=== PATIENT | female | born 1960 | race Caucasian/White ===

== ENCOUNTER 2016-12-09 01:49 | Observation (INO) | payer MEDICAID ==
[~2016-12-09] VITALS: Ht 149.9 cm; Wt 68.9 kg
[~2016-12-09 01:49] MED LIST: ALBU8.5H8 INH; AMOX1TAB64 PO; BACL-19 PO; CARV6.252 PO; CIPR500T87 PO; CLON-364 PO; CLON0.1T12 PO; FAMO-79 PO; GABA300C10 PO; LISI-170 PO; LISI40TA PO; METR500T PO; NICO-486 TD; OXYC5CAP2 PO; PRED10TA PO; PROM118S4 PO; TIOT4MIS5 INH; ZINC30OI TP; ZINC56.7 TP
[2016-12-09] MEDS ORDERED: CLONAZEPAM (02:05)
[2016-12-09] MEDS ORDERED: TRAMADOL (02:05)
[2016-12-09 02:23] LABS: HEMATOCRIT 46.5 % (34.6-47.8); HEMOGLOBIN 15.9 g/dL (11.7-16.4); WHITE BLOOD COUNT 9.1 x10^3/uL (3.4-10)
[2016-12-09] MEDS ORDERED: SODIUM CHLORIDE FLUSH 10ML SYR IVF ONE (02:30)
[2016-12-09] MEDS: SODIUM CHLORIDE 0.9% 1,000ML IVBOLUS ONE ×2 (02:30→04:01)
[2016-12-09] MEDS ORDERED: ONDANSETRON ODT 4 MG PO PRN (02:30)
[2016-12-09 02:35] LABS: ASPARTATE AMINO TRANSFERASE 21 U/L (15-37); BLOOD UREA NITROGEN 8 mg/dL (7-18)
[2016-12-09 02:53] LABS: DAU SCREEN DISCLAIMER
[2016-12-09 02:58] LABS: ACETAMINOPHEN < 2 mcg/mL (10-30)
[2016-12-09] MEDS ORDERED: SODIUM CHLORIDE 0.9% 1,000ML IVBOLUS ONE (04:30)
[2016-12-09 04:50] VITALS: BP 117/75
[2016-12-09] MEDS ORDERED: CARVEDILOL 6.25 MG TABLET PO SCH (06:00)
[2016-12-09 06:39] VITALS: BP 99/63
[2016-12-09] MEDS ORDERED: LISINOPRIL 20 MG TABLET PO SCH (09:00)
[2016-12-09 09:21] VITALS: BP 134/84
[2016-12-09] MEDS: MULTIVITAMIN 1 TABLET PO SCH (10:30)
[2016-12-09] MEDS: THIAMINE 100MG TABLET PO SCH (10:30)
[2016-12-09] MEDS: FOLIC ACID 1 MG TABLET PO SCH (10:30)
[2016-12-09 12:40] VITALS: BP 100/68
[2016-12-09] MEDS: CARVEDILOL 6.25 MG TABLET PO SCH (17:55)
[2016-12-09 19:20] VITALS: BP 111/74
[2016-12-09] MEDS: LISINOPRIL 20 MG TABLET PO SCH (20:57)
[2016-12-09] MEDS: FAMOTIDINE 20 MG TABLET PO SCH (20:57)
[2016-12-09] MEDS ORDERED: ALBUTEROL SULFATE 2.5 MG/3 ML ONE (21:46)
[2016-12-09] MEDS: GUAIFENESIN 100 MG/5 ML, 10ML UDC PO PRN (22:14)
[2016-12-10] VITALS (7 sets, daily range): BP systolic 110–166; BP diastolic 70–100
[2016-12-10] MEDS: ALBUTEROL SULFATE 2.5 MG/3 ML NPPB PRN ×2 (05:40→16:33)
[2016-12-10] MEDS: MORPHINE SULFATE 4 MG/ML, 1ML IVPush PRN ×2 (05:44→17:36)
[2016-12-10 05:49] LABS: HEMATOCRIT 39.4 % (34.6-47.8); HEMOGLOBIN 13.4 g/dL (11.7-16.4); WHITE BLOOD COUNT 8.4 x10^3/uL (3.4-10)
[2016-12-10] MEDS: CARVEDILOL 6.25 MG TABLET PO SCH ×2 (05:56→17:58)
[2016-12-10] MEDS: GUAIFENESIN 100 MG/5 ML, 10ML UDC PO PRN ×2 (05:56→15:43)
[2016-12-10 06:12] LABS: BLOOD UREA NITROGEN 16 mg/dL (7-18)
[2016-12-10 06:41] LABS: IS PT STATUS REG ER OR PRE ER? NO
[2016-12-10] MEDS: MULTIVITAMIN 1 TABLET PO SCH (09:22)
[2016-12-10] MEDS: FOLIC ACID 1 MG TABLET PO SCH (09:22)
[2016-12-10] MEDS: THIAMINE 100MG TABLET PO SCH (09:22)
[2016-12-10] MEDS: LISINOPRIL 20 MG TABLET PO SCH ×2 (09:22→21:40)
[2016-12-10] MEDS: ALBUTEROL SULFATE 2.5 MG/3 ML NPPB SCH (18:50)
[2016-12-10] MEDS: FAMOTIDINE 20 MG TABLET PO SCH (21:39)
[2016-12-11] VITALS (7 sets, daily range): BP systolic 111–207; BP diastolic 76–101
[2016-12-11] MEDS: ALBUTEROL SULFATE 2.5 MG/3 ML NPPB SCH ×3 (02:40→10:45)
[2016-12-11] MEDS: CARVEDILOL 6.25 MG TABLET PO SCH ×2 (05:50→17:21)
[2016-12-11] MEDS: GUAIFENESIN 100 MG/5 ML, 10ML UDC PO PRN (05:56)
[2016-12-11 06:10] LABS: IS PT STATUS REG ER OR PRE ER? NO
[2016-12-11] MEDS: MORPHINE SULFATE 4 MG/ML, 1ML IVPush PRN ×2 (06:10→10:34)
[2016-12-11] MEDS: FOLIC ACID 1 MG TABLET PO SCH (08:43)
[2016-12-11] MEDS: MULTIVITAMIN 1 TABLET PO SCH (08:43)
[2016-12-11] MEDS: THIAMINE 100MG TABLET PO SCH (08:43)
[2016-12-11] MEDS: LISINOPRIL 20 MG TABLET PO SCH ×2 (08:43→21:10)
[2016-12-11] MEDS: OXYcodone/APAP 5/325MG TABLET PO PRN (17:21)
[2016-12-11] MEDS: FAMOTIDINE 20 MG TABLET PO SCH (21:10)
[2016-12-12] MEDS: OXYcodone/APAP 5/325MG TABLET PO PRN (02:04)
[2016-12-12 05:54] LABS: IS PT STATUS REG ER OR PRE ER? NO
[2016-12-12 06:13] VITALS: BP 126/74
[2016-12-12] MEDS: CARVEDILOL 6.25 MG TABLET PO SCH ×2 (06:14→17:34)
[2016-12-12] MEDS ORDERED: KETOROLAC 30 MG/1 ML IM SCH (07:30)
[2016-12-12 07:50] VITALS: BP 205/155
[2016-12-12] MEDS: KETOROLAC 30 MG/1 ML IM PRN ×2 (08:33→19:17)
[2016-12-12] MEDS: FOLIC ACID 1 MG TABLET PO SCH (08:33)
[2016-12-12] MEDS: MULTIVITAMIN 1 TABLET PO SCH (08:33)
[2016-12-12] MEDS: THIAMINE 100MG TABLET PO SCH (08:33)
[2016-12-12] MEDS: LISINOPRIL 20 MG TABLET PO SCH ×2 (08:33→20:05)
[2016-12-12] MEDS: LORazepam 1MG TABLET PO PRN ×2 (11:54→19:21)
[2016-12-12 19:30] VITALS: BP 138/87
[2016-12-12] MEDS: FAMOTIDINE 20 MG TABLET PO SCH (20:05)
[2016-12-13 06:00] VITALS: BP_SYST 182; BP_SYST 202; BP_DIAS 104; BP_DIAS 120
[2016-12-13] MEDS: CARVEDILOL 6.25 MG TABLET PO SCH ×2 (06:04→17:57)
[2016-12-13] MEDS: KETOROLAC 30 MG/1 ML IM PRN ×3 (06:05→20:45)
[2016-12-13 06:15] VITALS: BP_SYST 172; BP_SYST 188; BP_DIAS 107; BP_DIAS 113
[2016-12-13] MEDS: LISINOPRIL 20 MG TABLET PO SCH ×2 (06:49→20:16)
[2016-12-13 07:28] VITALS: BP 189/100
[2016-12-13] MEDS: MULTIVITAMIN 1 TABLET PO SCH (09:17)
[2016-12-13] MEDS: THIAMINE 100MG TABLET PO SCH (09:17)
[2016-12-13] MEDS: FOLIC ACID 1 MG TABLET PO SCH (09:17)
[2016-12-13] MEDS: LORazepam 1MG TABLET PO PRN ×4 (09:17→20:15)
[2016-12-13 19:31] VITALS: BP 167/102
[2016-12-13] MEDS: FAMOTIDINE 20 MG TABLET PO SCH (20:16)
== END 2016-12-14 00:21 ==
LOC: ED 02:31 → EDIP 02:35 → INTOOBSV 02:35 → 4EST 04:41 → 3E 12-11 17:35
PROVIDERS: ADMIT Internal Medicine; ATTEND Internal Medicine
DX: T40.4X2A Poisoning by other synthetic narcotics, intentional self-harm, initial encounter (principal); T42.4X2A Poisoning by benzodiazepines, intentional self-harm, initial encounter; J44.9 Chronic obstructive pulmonary disease, unspecified; I10 Essential (primary) hypertension; F17.200 Nicotine dependence, unspecified, uncomplicated; F10.10 Alcohol abuse, uncomplicated; F12.90 Cannabis use, unspecified, uncomplicated; F32.9 Major depressive disorder, single episode, unspecified; Z83.3 Family history of diabetes mellitus; Z91.5 Personal history of self-harm; Y92.89 Other specified places as the place of occurrence of the external cause
CPT/HCPCS: 36415; 80048; 80053; 80307; 80329; 84484; 85025; 93005; 94640; 96372; 96374; 96376; 99285; G0378; J1885; J7030; J7613; G0479; G0480

== ENCOUNTER 2018-01-27 21:49 | Emergency (ER) | payer MEDICAID ==
[~2018-01-27] VITALS: Ht 149.9 cm; Wt 71.1 kg
[~2018-01-27 21:49] MED LIST changes: +BUDE10.2 INH; -CLON-364 PO; +CLON0.5T11 PO; +CLONAZEPAM; +CODE118S4 PO; -PROM118S4 PO; +SERT100T PO; +TRAMADOL
[2018-01-27 21:52] VITALS: BP 145/74
== END 2018-01-27 23:07 | disposition home or self-care (01) ==
LOC: ED 22:21
DX: S93.402A Sprain of unspecified ligament of left ankle, initial encounter (principal); J44.9 Chronic obstructive pulmonary disease, unspecified; I10 Essential (primary) hypertension; Z90.710 Acquired absence of both cervix and uterus; F32.9 Major depressive disorder, single episode, unspecified; X50.1XXA Overexertion from prolonged static or awkward postures, initial encounter; Y93.89 Activity, other specified; Y99.8 Other external cause status; Y92.410 Unspecified street and highway as the place of occurrence of the external cause
CPT/HCPCS: 99283

== ENCOUNTER 2018-02-06 12:52 | Inpatient (IN) | payer MEDICAID ==
[~2018-02-06] VITALS: Ht 149.9 cm; Wt 69.3 kg
[2018-02-06] MEDS ORDERED: ONDANSETRON 2MG/ML, 2ML ONE (14:25)
[2018-02-06] MEDS ORDERED: HYDROmorphone 2 MG/ML, 1ML ONE (14:25)
[2018-02-06] MEDS ORDERED: ONDANSETRON 2MG/ML, 2ML IVPush ONE (14:30)
[2018-02-06] MEDS ORDERED: SODIUM CHLORIDE FLUSH 10ML SYR IVF ONE (14:30)
[2018-02-06] MEDS: HYDROmorphone 2 MG/ML, 1ML IVPush PRN ×2 (14:31→16:38)
[2018-02-06 14:51] LABS: BASOPHILS # (AUTO) 0.01 x10^3/uL (0-0.1); BASOPHILS % (AUTO) 0 % (0-1); EOSINOPHILS # (AUTO) 0.12 x10^3/uL (0-0.4); EOSINOPHILS % (AUTO) 2 % (1-7); LYMPHOCYTES # (AUTO) 0.82 x10^3/uL (1-3.4); LYMPHOCYTES % (AUTO) 14 % (22-44); MD NO; MEAN CORPUSCULAR HEMOGLOBIN 31.8 pg (27.0-34.8); MEAN CORPUSCULAR HGB CONC 34.5 g/dL (32.4-35.8); MEAN CORPUSCULAR VOLUME 92.1 fL (80-100); MEAN PLATELET VOLUME 8.4 fL (7.4-10.4); MONOCYTES # (AUTO) 0.66 x10^3/uL (0.2-0.8); MONOCYTES % (AUTO) 12 % (2-9); NEUTROPHILS % (AUTO) 72 % (42-75); PLATELET COUNT 244 x10^3/uL (130-400); RED BLOOD COUNT 5.02 x10^6/uL (3.82-5.3); RED CELL DISTRIBUTION WIDTH 13.7 % (9.6-15.2)
[2018-02-06 14:55] LABS: MICROSCOPIC AUTO
[2018-02-06 14:57] LABS: CULTURE INDICATED? NO
[2018-02-06 14:58] LABS: RAPID INFLUENZA A Negative (Negative); RAPID INFLUENZA B Negative (Negative)
[2018-02-06 14:58] LABS: ALANINE AMINOTRANSFERASE 21 U/L (12-78); ANION GAP 9 mmol/L (5-15); CALCIUM 9.1 mg/dL (8.5-10.1); CHLORIDE 105 mmol/L (98-107); CREATININE 0.72 mg/dL (0.55-1.02)
[2018-02-06 15:00] LABS: ALKALINE PHOSPHATASE 75 U/L (45-117); BILIRUBIN,TOTAL 0.3 mg/dL (0.2-1.0); TOTAL PROTEIN 7.7 g/dL (6.4-8.2)
[2018-02-06] MEDS ORDERED: PROMETHAZINE/COD. 10MG/6.25MG/5 ML ORAL SOL PO ONE (15:30)
[2018-02-06] MEDS ORDERED: OMNIPAQUE 350 MG/ML, 100ML BOTTLE ONE (16:20)
[2018-02-06] MEDS ORDERED: ALBUTEROL SULFATE 2.5 MG/3 ML ONE (17:09)
[2018-02-06] MEDS: ALBUTEROL SULFATE 2.5 MG/3 ML NPPB SCH ×2 (17:14→21:00)
[2018-02-06] MEDS ORDERED: LISI-170 PO (17:24)
[2018-02-06] MEDS ORDERED: trazodone PO (17:24)
[2018-02-06] MEDS ORDERED: mobic PO (17:24)
[2018-02-06] MEDS ORDERED: CEFTRIAXONE 1,000 MG in SODIUM CHLORIDE 0.9% 50 ML IVPB SCH (18:00)
[2018-02-06] MEDS ORDERED: KETOROLAC 30 MG/1 ML IM PRN (18:00)
[2018-02-06] MEDS ORDERED: GUAIFENESIN/DM 200-20MG, 10ML UDC PO PRN (18:00)
[2018-02-06] MEDS ORDERED: ENOXAPARIN 40 MG/0.4 ML SQ SCH (18:00)
[2018-02-06] MEDS ORDERED: NICOTINE 21 MG/24 HR PATCH.TD24 TD ONE (18:00)
[2018-02-06] MEDS ORDERED: ACETAMINOPHEN 650 MG SUPP PR PRN (18:00)
[2018-02-06] MEDS ORDERED: ACETAMINOPHEN 325 MG TABLET PO PRN (18:00)
[2018-02-06] MEDS ORDERED: ONDANSETRON 2MG/ML, 2ML IVPush PRN (18:00)
[2018-02-06] MEDS ORDERED: GABA100C PO (18:11)
[2018-02-06] MEDS ORDERED: ALBUTEROL/IPRATROPIUM 2.5MG/0.5MG, 3 ML NPPB SCH (19:00)
[2018-02-06] MEDS: methylPREDNISolone SOD SUCC 40 MG/ML IVPush SCH (19:16)
[2018-02-06] MEDS ORDERED: CEFTRIAXONE PMX 1GM/50ML 50 ML IVPB SCH (19:30)
[2018-02-06] MEDS ORDERED: SERTRALINE 100MG TABLET PO SCH (21:00)
[2018-02-06] MEDS ORDERED: LISINOPRIL 20 MG TABLET PO SCH (21:00)
[2018-02-06] MEDS: BUDESONIDE 0.5 MG/2 ML INHA NPPB SCH (21:00)
[2018-02-06] MEDS: DOXYCYCLINE 100 MG in DEXTROSE 5% 250 ML IVPB SCH (21:41)
[2018-02-06 23:28] VITALS: BP 119/82
[2018-02-07] MEDS: methylPREDNISolone SOD SUCC 40 MG/ML IVPush SCH ×2 (00:16→06:18)
[2018-02-07 01:40] VITALS: BP 105/70
[2018-02-07] MEDS: ALBUTEROL SULFATE 2.5 MG/3 ML NPPB SCH ×3 (06:00→14:12)
[2018-02-07] MEDS: KETOROLAC 30 MG/1 ML IV PRN ×2 (06:18→12:36)
[2018-02-07 07:04] VITALS: BP 131/74
[2018-02-07] MEDS: BUDESONIDE 0.5 MG/2 ML INHA NPPB SCH (09:00)
[2018-02-07] MEDS ORDERED: GABAPENTIN 100 MG CAPSULE PO SCH ×2 (09:00→16:00)
[2018-02-07] MEDS: DOXYCYCLINE 100 MG in DEXTROSE 5% 250 ML IVPB SCH (09:17)
[2018-02-07] MEDS ORDERED: HYDR50CA2 PO (11:05)
[2018-02-07] MEDS ORDERED: RISP2TAB11 PO (11:10)
[2018-02-07] MEDS ORDERED: ALBU2.5V NEB (11:14)
[2018-02-07] MEDS ORDERED: LORA10TA3 PO (11:20)
[2018-02-07] MEDS ORDERED: TIOT18CA INH (11:20)
[2018-02-07] MEDS ORDERED: CHOL200078 PO (11:23)
[2018-02-07 12:47] VITALS: BP 148/89
[2018-02-07] MEDS ORDERED: methylPREDNISolone SOD SUCC 40 MG/ML IVPush SCH (14:00)
[2018-02-07] MEDS ORDERED: CYCLOBENZAPRINE 10 MG TABLET PO PRN (14:30)
[2018-02-07] MEDS ORDERED: HYDROXYZINE PAMOATE 50MG CAP PO SCH (16:00)
== END 2018-02-07 15:03 | disposition left against medical advice (07) | DRG 202 ==
LOC: ED 13:38 → EDIP 17:12 → 3NE 18:15
PROVIDERS: ADMIT Internal Medicine; ATTEND Internal Medicine
DX: J45.901 Unspecified asthma with (acute) exacerbation (principal); J44.1 Chronic obstructive pulmonary disease with (acute) exacerbation; F17.210 Nicotine dependence, cigarettes, uncomplicated; M79.7 Fibromyalgia; I10 Essential (primary) hypertension; F12.90 Cannabis use, unspecified, uncomplicated; R29.810 Facial weakness; Z83.3 Family history of diabetes mellitus; Z88.1 Allergy status to other antibiotic agents; Z88.2 Allergy status to sulfonamides; Z88.8 Allergy status to other drugs, medicaments and biological substances; Z90.710 Acquired absence of both cervix and uterus
CPT/HCPCS: 36415; 87400; J7613; J7620; J7626; 70450; 71045; 74177; 80053; 81001; 83605; 85025; 87040; 93005; 94640; G0378; J0696; J1170; J1650; J1885; J2405; J7060; Q9967; J2920